=== PATIENT | female | born 1980 | race Caucasian/White ===

== ENCOUNTER 2016-12-17 14:52 | Outpatient (CLI) | payer BC, OTHER ==
[~2016-12-17] VITALS: Ht 162.6 cm; Wt 54.9 kg
[~2016-12-17 14:52] MED LIST: BC PILL PO; FAMO20TA5 PO; HYDR1TAB75 PO; IBP800T PO; PREN1TAB39 PO; SCR1T1 PO
[2016-12-17 15:03] VITALS: BP 115/73
[2016-12-17 15:17] LABS: BASOPHILS % (AUTO) 1 % (0-10); EOSINOPHILS # (AUTO) 0.2 10^3/uL (0.0-0.3); EOSINOPHILS % (AUTO) 4 % (0-10); LYMPHOCYTES # (AUTO) 1.7 X 10^3 (1.0-4.0); LYMPHOCYTES % (AUTO) 26 % (12-44); MEAN CORPUSCULAR HEMOGLOBIN 30 PG (25-34); MEAN CORPUSCULAR HGB CONC 33 G/DL (32-36); MEAN CORPUSCULAR VOLUME 91 FL (80-99); MEAN PLATELET VOLUME 11.2 FL (7.4-10.4); MONOCYTES # (AUTO) 0.5 X 10^3 (0.0-1.0); MONOCYTES % (AUTO) 8 % (0-12); NEUTROPHILS # (AUTO) 3.9 X 10^3 (1.8-7.8); NEUTROPHILS % (AUTO) 62 % (42-75); PLATELET COUNT 172 10^3/uL (130-400); RED BLOOD COUNT 4.65 10^6/uL (4.35-5.85); RED CELL DISTRIBUTION WIDTH 12.7 % (10.0-14.5); WHITE BLOOD COUNT 6.4 10^3/uL (4.3-11.0)
== END 2016-12-17 15:15 | disposition home or self-care (01) ==
LOC: PREOP 14:52
PROVIDERS: ATTEND Obstetrics & Gynecology
DX: Z01.812 Encounter for preprocedural laboratory examination (principal); N93.8 Other specified abnormal uterine and vaginal bleeding; N92.0 Excessive and frequent menstruation with regular cycle; D64.9 Anemia, unspecified
CPT/HCPCS: 36415; 85025; 87081

== ENCOUNTER 2016-12-22 11:32 | Day surgery (SDC) | payer BC, OTHER ==
[~2016-12-22] VITALS: Ht 162.6 cm; Wt 54.9 kg
--- OUTSIDE RECORDS SUMMARY | 2016-12-22 11:36 | XMS REPORT ---
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
[2016-12-22] MEDS ORDERED: fentaNYL INJECTION 100 MCG/2 ML AMP ONE (11:42)
[2016-12-22] MEDS ORDERED: SEVOFLURANE (ULTANE) 15 ML INHAL SOLN ONE (11:42)
[2016-12-22] MEDS ORDERED: LACTATED RINGERS 1,000 ML IV PRN (11:42)
[2016-12-22] MEDS ORDERED: LIDOCAINE PF 2% 5 ML (XYLOCAINE) VIAL ONE (11:42)
[2016-12-22] MEDS ORDERED: DEXAMETHASONE 10 MG/ML (DECADRON) 1 ML VIAL ONE (11:42)
[2016-12-22] MEDS ORDERED: ceFAZolin 1,000 MG (ANCEF) VIAL ONE (11:43)
[2016-12-22] MEDS ORDERED: MIDAZOLAM 2 MG/2 ML (VERSED) VIAL ONE (11:43)
[2016-12-22] MEDS ORDERED: NS (IVPB) 50 ML ONE (11:43)
[2016-12-22] MEDS ORDERED: SCOPOLAMINE 1.5 MG (TRANSDERM-SCOP) PATCH TOP ONE (11:45)
[2016-12-22] MEDS ORDERED: FAMOTIDINE 20MG/2ML IV (PEPCID) IV ONE (11:45)
[2016-12-22] MEDS ORDERED: ONDANSETRON 4 MG/2 ML (SDV) Z0FRAN IV ONE (11:45)
[2016-12-22] MEDS ORDERED: ceFAZolin 1 GM/NS 50 ML IVPB IV ONE ×2 (12:00)
[2016-12-22 12:12] VITALS: BP 115/80
[2016-12-22] MEDS ORDERED: WATER (STERILE) FOR INJECTION 10 ML ONE (14:22)
[2016-12-22] MEDS ORDERED: ESTROGENS CONJ IV 25 MG/5 ML (PREMARIN) VIAL ONE (14:22)
--- NOTE | 2016-12-22 14:24 | Progress Note-Pre Operative ---
Pre-Operative Progress Note H&P Reviewed The H&P was reviewed, patient examined and no changes noted. Date Seen by Provider: Dec 22, 2016 Time Seen by Provider: 14:24 Date H&P Reviewed: Dec 22, 2016 Time H&P Reviewed: 14:24 Pre-Operative Diagnosis: DUB/menorrhagia SALMA MON MD Dec 22, 2016 2:24 pm
[2016-12-22] MEDS ORDERED: D5 LR IV SOLUTION 1,000 ML IV SCH (14:25)
--- NOTE | 2016-12-22 14:25 | Progress Note-Post Operative ---
Post-Operative Progess Note Surgeon (s)/Sensor Operator (s) Surgeon SALMA MON MD Sensor Operator: none Pre-Operative Diagnosis DUB/menorrhagia Post-Operative Diagnosis same with pathology pending Procedure & Operative Findings Date of Procedure 12/22/16 Procedure Performed/Findings hysteroscopy with directed biopsy and D&C Anesthesia Type GETA Estimated Blood Loss Estimated blood loss (mL): medical Specimens/Packing Specimens Removed directed biopsy of endometrial mass and endometrial curettings Packing: none SALMA MON MD Dec 22, 2016 14:25
[2016-12-22] MEDS ORDERED: OXYC-202 PO (14:28)
--- NOTE | 2016-12-22 14:29 | Discharge Instructions ---
Discharge Instructions Discharge Medications New, Converted or Re-Newed RX: RX on Chart Patient Instructions Patient Instructions: as directed Return to The Hospital For: as directed Activity & Diet Discharge Diet: No Restrictions Activity as Tolerated: No Orders-Post D/C & Referrals Follow Up Appt: Call to make follow up appt. for patient in 2 weeks. Activity: Rest for 24 hours, than as tolerated. Diet: As tolerated-Clear Liquids only if nauseated. shower or tub bathe as desired. No driving for 24 hours, no alcoholic beverages for 24 hours, and nothing per vagina (no tampons, douching, or intercourse) for 2 weeks. Patient to return to the clinic as soon as possible for: Temperature greater than 101F, Severe Pain, Foul discharge from incision or vagina, Excessive Bleeding (more than a period). SALMA MON MD Dec 22, 2016 2:29 pm
[2016-12-22] MEDS ORDERED: KETOROLAC 30 MG/ML VIAL IVP ONE (14:30)
[2016-12-22] MEDS ORDERED: oxyCODONE/APAP 10/325MG (PERCOCET 10) TABLET PO PRN (14:30)
[2016-12-22] MEDS ORDERED: ONDANSETRON 4 MG/2 ML (SDV) Z0FRAN IVP PRN ×2 (14:30→15:15)
[2016-12-22] MEDS ORDERED: ESTROGENS CONJ IV 25 MG/5 ML (PREMARIN) VIAL IVP ONE (14:30)
[2016-12-22] MEDS ORDERED: fentaNYL INJECTION 100 MCG/2 ML AMP IVP PRN (14:30)
[2016-12-22] MEDS ORDERED: morphine INJ 10 MG/ML 1ML (SYR OR VIAL) ONE (14:55)
[2016-12-22] MEDS ORDERED: morphine INJ 10 MG/ML 1ML (SYR OR VIAL) IVP PRN (15:15)
[2016-12-22] MEDS ORDERED: ONDANSETRON 4 MG/2 ML (SDV) Z0FRAN ONE (15:24)
[2016-12-22 16:00] VITALS: BP 110/61
[2016-12-22 16:30] VITALS: BP 110/61
[2016-12-22 17:00] VITALS: BP 108/61
--- NOTE | 2016-12-23 02:18 | OPERATIVE REPORT ---
DATE OF SERVICE: 12/22/2016 PREOPERATIVE DIAGNOSES: Dysfunctional uterine bleeding and menorrhagia. POSTOPERATIVE DIAGNOSES: Dysfunctional uterine bleeding and menorrhagia. OPERATIVE PROCEDURE: Hysteroscopy with directed biopsy and D and C. OPERATIVE DESCRIPTION: With the patient in a supine position under satisfactory general anesthesia, she was repositioned in the dorsal lithotomy position in the Denny stirrups and prepped and draped in the usual fashion for vaginal surgery. A weighted speculum was placed in the posterior fornix of the vagina, the cervix exposed and grasped anteriorly with a single-toothed tenaculum. Uterus was sounded to 11.5 cm with the uterine sound. The cervix was then serially dilated with Alon dilators to accommodate a hysteroscope, which was introduced using LR as a distending medium. The endometrial cavity was examined. There was a polypoid mass emanating from the right anterior surface of the uterine cavity. There was what appeared to be submucosal fibroid evidenced by the firm bulging nodular mass in the mid portion of the uterine fundus. A construction representative biopsy was taken from that mass and a construction representative biopsy was taken from the polypoid mass. The hysteroscope was removed and the endometrial cavity curettaged in all 4 quadrants to good uterine cri with removal of the moderate amount of endometrial appearing tissue. The hysteroscope was reintroduced. The endometrial cavity examined. There was no significant bleeding. There was small amount of remaining tissue on the posterior wall of the uterus, this was curettaged out as well and then with no remaining abnormal pathology and no bleeding, the procedure was terminated. The hysteroscope was removed as was the tenaculum. There was some bleeding from both puncture sites. These were touched with silver nitrate to effect hemostasis. Now with hemostasis assured, sponge and needle counts correct, estimated blood loss minimal, the patient was uneventfully awakened from her general anesthesia and transferred to the recovery room in stable condition with plans for discharge home PAR. A total of 550 mL of LR was used as a distending medium, 400 mL was recovered. Job ID: [id number] DocumentID: [id number] Dictated Date: 12/22/2016 14:54:35 Annealer Helper Date: 12/22/2016 17:37:55 Dictated By: SALMA MON MD
== END 2016-12-22 17:15 | disposition home or self-care (01) ==
LOC: SDC 11:32
PROVIDERS: ATTEND Obstetrics & Gynecology
DX: D25.0 Submucous leiomyoma of uterus (principal)
CPT/HCPCS: 84703; 88305